=== PATIENT | male | born 1985 | race Two or more races ===

== ENCOUNTER 2018-01-23 00:35 | Emergency (ER) | payer BC ==
[~2018-01-23] VITALS: Ht 182.9 cm; Wt 112.3 kg
[2018-01-23 00:42] VITALS: BP 133/78
== END 2018-01-23 02:04 | disposition left against medical advice (07) ==
LOC: ER 00:35
DX: M54.9 Dorsalgia, unspecified (principal); Z53.21 Procedure and treatment not carried out due to patient leaving prior to being seen by health care provider

== ENCOUNTER 2019-01-14 11:40 | Emergency (ER) | payer BC ==
[~2019-01-14] VITALS: Ht 182.9 cm; Wt 104.5 kg
[2019-01-14] MEDS ORDERED: bacitracin 15gm ointment TP ONE (13:00)
[2019-01-14] MEDS ORDERED: TETanus/Pertussis (Acell)/Diphther VAC/PF (Tdap-Adult) 0.5ml syringe IMVAC ONE (13:00)
[2019-01-14 13:42] VITALS: BP 148/96
== END 2019-01-14 13:44 | disposition home or self-care (01) ==
LOC: ER 11:41
DX: S61.411A Laceration without foreign body of right hand, initial encounter (principal); F12.90 Cannabis use, unspecified, uncomplicated; Z98.890 Other specified postprocedural states; W27.8XXA Contact with other nonpowered hand tool, initial encounter; Y93.89 Activity, other specified; Y92.89 Other specified places as the place of occurrence of the external cause; Y99.8 Other external cause status
CPT/HCPCS: 12001; 90471; 99283